=== PATIENT | male | born 1950 | race Caucasian/White ===

== ENCOUNTER → 2019-09-18 | Outpatient (REF) | payer MEDICARE, MEDICAID ==
[~2019-09-18] MED LIST: ALBU83IN INH; BREO1INH INH; CALC-234 PO; CLAR1TAB13 PO; LISI20TA33 PO; METF500T13 PO; METH10TA PO; METO1TAB32 PO; NORV5TAB PO; SPIR1CAP INH; XARE20TA PO
== END ==
LOC: EDSEX → M SMT 17:00
PROVIDERS: ATTEND Nurse Practitioner Family
DX: C67.9 Malignant neoplasm of bladder, unspecified (principal)
CPT/HCPCS: 88108; G0463

== ENCOUNTER → 2019-10-18 | Outpatient (CLI) | payer MEDICARE, MEDICAID ==
[~2019-10-18] MED LIST changes: +LISI-538 PO; -LISI20TA33 PO
== END ==
LOC: EDSEX → M LABSMTC 10:44
PROVIDERS: ATTEND Anesthesiology
DX: Z01.818 Encounter for other preprocedural examination (principal); Z11.59 Encounter for screening for other viral diseases
CPT/HCPCS: C9803; U0003

== ENCOUNTER → 2020-01-29 | Outpatient (REF) | payer MEDICARE, MEDICAID | LOC: M SMT 13:35 | PROVIDERS: ATTEND Urology | DX: C67.9 Malignant neoplasm of bladder, unspecified (principal) ==

== ENCOUNTER → 2020-04-29 | Outpatient (REF) | payer MEDICARE, MEDICAID ==
[~2020-04-29] MED LIST changes: -LISI-538 PO; +LISI20TA33 PO
== END ==
LOC: M SMT 13:28
PROVIDERS: ATTEND Urology
DX: C67.9 Malignant neoplasm of bladder, unspecified (principal)

== ENCOUNTER → 2020-08-02 | Outpatient (REF) | payer MEDICARE, MEDICAID | LOC: M SMT 16:40 | PROVIDERS: ATTEND Urology | DX: C67.9 Malignant neoplasm of bladder, unspecified (principal) ==

== ENCOUNTER → 2020-11-11 | Outpatient (REF) | payer MEDICARE, MEDICAID | LOC: M SMT 13:44 | PROVIDERS: ATTEND Urology | DX: C67.9 Malignant neoplasm of bladder, unspecified (principal); Z23 Encounter for immunization | CPT/HCPCS: 52000; 88108; 90471; 90715; G0463 ==

== ENCOUNTER → 2021-05-19 | Outpatient (REF) | payer MEDICARE, MEDICAID | LOC: M SMT 16:42 | PROVIDERS: ATTEND Urology | DX: C67.9 Malignant neoplasm of bladder, unspecified (principal) ==

== ENCOUNTER → 2021-11-24 | Outpatient (REF) | payer MEDICARE, MEDICAID ==
[~2021-11-24] MED LIST changes: +ALBU2.5V10 INH; -ALBU83IN INH
== END ==
LOC: M SMT 13:09
PROVIDERS: ATTEND Urology
DX: C67.9 Malignant neoplasm of bladder, unspecified (principal)

== ENCOUNTER → 2022-07-27 | Outpatient (CLI) | payer MEDICARE, MEDICAID | LOC: M RAD 12:52 | PROVIDERS: ATTEND Physician Assistant | DX: I70.611 Atherosclerosis of nonbiological bypass graft(s) of the extremities with intermittent claudication, right leg (principal); L76.34 Postprocedural seroma of skin and subcutaneous tissue following other procedure ==

== ENCOUNTER → 2022-09-14 | Outpatient (REF) | payer MEDICARE, MEDICAID | LOC: M SMT 12:55 | PROVIDERS: ATTEND Urology | DX: C67.9 Malignant neoplasm of bladder, unspecified (principal) ==

== ENCOUNTER → 2023-01-29 | Outpatient (CLI) | payer MEDICARE, MEDICAID ==
[2023-01-29 14:34] LABS: FREE T4 0.77 NG/DL (0.89-1.76); THYROID STIMULATING HORMONE 2.905 uIU/ML (0.55-4.78)
== END ==
LOC: M LAB 13:34
PROVIDERS: ATTEND Internal Medicine Endocrinology, Diabetes & Metabolism
DX: E05.00 Thyrotoxicosis with diffuse goiter without thyrotoxic crisis or storm (principal)

== ENCOUNTER → 2023-01-29 | Outpatient (CLI) | payer MEDICARE, MEDICAID | LOC: M RAD 10:49 | PROVIDERS: ATTEND Physician Assistant | DX: I73.9 Peripheral vascular disease, unspecified (principal) ==

== ENCOUNTER → 2023-02-08 | Outpatient (CLI) | payer MEDICARE, MEDICAID ==
[~2023-02-08] MED LIST changes: +PROHANCE 279.3MG/ML 15ML VIAL As Ordered ONE
== END ==
LOC: M RAD 15:43
PROVIDERS: ATTEND Urology
DX: E27.8 Other specified disorders of adrenal gland (principal)
CPT/HCPCS: 74183; A9576

== ENCOUNTER → 2023-02-09 | Outpatient (REF) | payer MEDICARE, MEDICAID ==
[~2023-02-09] MED LIST changes: -PROHANCE 279.3MG/ML 15ML VIAL As Ordered ONE
[2023-02-09 19:04] LABS: APPEARANCE, URINE CLEAR (CLEAR); BACTERIA, URINE AUTO NEGATIVE (NEGATIVE); BILIRUBIN, URINE AUTO NEGATIVE (NEGATIVE); BLOOD, URINE BLOOD NEGATIVE (NEGATIVE); COLOR, URINE YELLOW (YELLOW); GLUCOSE, URINE (UA) AUTO NEGATIVE (NEGATIVE); KETONE, URINE AUTO NEGATIVE (NEGATIVE); LEUKOCYTE ESTERASE, URINE AUTO NEGATIVE (NEGATIVE); MUCUS, URINE SMALL (NEGATIVE); NITRITE, URINE AUTO NEGATIVE (NEGATIVE); PROTEIN, URINE AUTO NEGATIVE (NEGATIVE); RBC, URINE AUTO 0 /HPF (0-3); SPECIFIC GRAVITY URINE AUTO 1.011 (1.002-1.035); SQUAMOUS EPITHELIAL CELL UR AU 0 /HPF (0-6); UROBILINOGEN, URINE AUTO 0.2 mg/dL (0.0-2.0); WBC, URINE AUTO 0 /HPF (0-3)
== END ==
LOC: M SMT 16:46
PROVIDERS: ATTEND Urology
DX: N39.0 Urinary tract infection, site not specified (principal)